=== PATIENT | male | born 2005 | race Caucasian/White ===

== ENCOUNTER 2024-01-26 20:05 | Outpatient (CLI) | payer OTHER, BC, SELFPAY | END 2024-01-26 20:06 | disposition home or self-care (01) | LOC: AMB 01-29 01:53 | PROVIDERS: Visit Provider Emergency Medicine | DX: S29.9XXA Unspecified injury of thorax, initial encounter (principal); V43.53XA Car driver injured in collision with pick-up truck in traffic accident, initial encounter; Y92.410 Unspecified street and highway as the place of occurrence of the external cause | CPT/HCPCS: A0425; A0427 ==